=== PATIENT | female | born 1965 | race Hispanic/Latino ===

== ENCOUNTER 2021-02-28 07:33 | Day surgery (SDC) | payer BC ==
[2021-02-26 09:45] VITALS: BP 155/76
[2021-02-26 10:01] LABS: BASOPHILS % (AUTO) 0.6 % (0.0-5.0); EOSINOPHILS % (AUTO) 2.6 % (0.0-8.0); HEMATOCRIT 45.3 % (36-48); LYMPHOCYTES % (AUTO) 31.1 % (21.0-51.0); MEAN CORPUSCULAR HEMOGLOBIN 29.7 pg (27.0-33.0); MEAN CORPUSCULAR HGB CONC 33.6 g/dL (32.0-36.0); MEAN CORPUSCULAR VOLUME 88.5 fL (79-99); MONOCYTES % (AUTO) 5.8 % (3.0-13.0); NEUTROPHILS % (AUTO) 59.6 % (40.0-77.0); PLATELET COUNT (AUTO) 310 K/uL (130-400); RED BLOOD CELL COUNT(AUTO) 5.12 MIL/uL (4.00-5.50); RED CELL DISTRIBUTION WIDTH 11.9 % (11.0-15.5); WHITE BLOOD COUNT (AUTO) 7.1 K/uL (4.8-10.8)
[2021-02-26 10:12] LABS: CREATININE 0.7 mg/dL (0.5-1.5); POTASSIUM 4.6 mmol/L (3.5-5.1)
[~2021-02-28] VITALS: Ht 160 cm; Wt 73.8 kg
[2021-02-28] VITALS (19 sets, daily range): BP systolic 106–149; BP diastolic 49–91
[~2021-02-28 07:33] MED LIST: LISI10TA24 PO; SIMV10TA97 PO
[2021-02-28] MEDS ORDERED: LACTATED RINGERS 1000ML 1,000 ML IV ONE (09:22)
[2021-02-28] MEDS: CEFAZOLIN SODIUM 1 GM VIAL ONE ×2 (10:31→14:30)
[2021-02-28] MEDS ORDERED: DEXAMETHASONE SOD PHOSPHATE 10MG/ML 1ML VIAL ONE (13:53)
[2021-02-28] MEDS ORDERED: ONDANSETRON 4MG INJ ONE ×2 (13:53→17:29)
[2021-02-28] MEDS ORDERED: LIDOCAINE PF 100MG/5ML (2%) SYRINGE 5ML ONE (13:53)
[2021-02-28] MEDS ORDERED: SUCCINYLCHOLINE CHLORIDE 20 MG/ML 10 ML VIAL ONE (13:53)
[2021-02-28] MEDS ORDERED: GLYCOPYRROLATE 1 MG/5 ML SYRINGE ONE (13:54)
[2021-02-28] MEDS ORDERED: PROPOFOL 10 MG/ML 20ML VIAL IV ONE (13:54)
[2021-02-28] MEDS ORDERED: ROCURONIUM 10MG/1ML SYR 10 MG/ML ML ONE (13:54)
[2021-02-28] MEDS ORDERED: NEOSTIGMINE 5MG/5ML SYR IV ONE (13:54)
[2021-02-28] MEDS ORDERED: MIDAZOLAM HCL 1 MG/ML 2ML VIAL ONE (13:54)
[2021-02-28] MEDS ORDERED: FENTANYL CITRATE PF 50 MCG/1 ML 5ML AMP IV ONE (13:56)
[2021-02-28] MEDS ORDERED: EPHEDRINE SULFATE 50 MG/ML AMPULE ONE (14:08)
[2021-02-28] MEDS ORDERED: EPINEPHRINE 1 MG/ML 30ML VIAL IJ ONE (14:27)
[2021-02-28] MEDS ORDERED: CEFAZOLIN SODIUM 2 GM VIAL IV ONE (14:30)
[2021-02-28] MEDS ORDERED: PHENYLEPHRINE HCL 10 MG/ML 1ML VIAL IV ONE (14:34)
[2021-02-28] MEDS ORDERED: CEFAZOLIN SODIUM 1 GM VIAL ONE (15:45)
[2021-02-28] MEDS ORDERED: MELO-108 PO (16:40)
[2021-02-28] MEDS ORDERED: HYDR-4060 PO (16:40)
[2021-02-28] MEDS ORDERED: CEPH500B PO (16:40)
== END 2021-02-28 18:45 | disposition home or self-care (01) ==
LOC: DAH 07:33
PROVIDERS: ATTEND Orthopaedic Surgery
DX: M75.122 Complete rotator cuff tear or rupture of left shoulder, not specified as traumatic (principal); Z20.822 Contact with and (suspected) exposure to COVID-19; M75.42 Impingement syndrome of left shoulder; I10 Essential (primary) hypertension; G89.29 Other chronic pain; K21.9 Gastro-esophageal reflux disease without esophagitis; M19.90 Unspecified osteoarthritis, unspecified site; Z82.49 Family history of ischemic heart disease and other diseases of the circulatory system; Z90.710 Acquired absence of both cervix and uterus
CPT/HCPCS: 23412; 36415; 64415; 76942; 80048; 85025; 87635; A4215; A4221; A4222; A4223; A4565; A4600; A4649 ×3; A4663; A4930; A5120; A6204; C1713 ×5; C9803; J0171; J0330; J0690 ×3; J1100; J2001; J2370; J2405 ×2; J2704; J2710; J3010; J3490 ×2; J7120 ×2; J2250

== ENCOUNTER 2021-03-03 16:29 | Emergency (ER) | payer BC ==
[~2021-03-03] VITALS: Ht 157.5 cm; Wt 73.5 kg
[~2021-03-03 16:29] MED LIST changes: +CEPH500B PO; +HYDR-4060 PO; +MELO-108 PO
[2021-03-03 17:06] LABS: BASOPHILS % (AUTO) 0.1 % (0.0-5.0); EOSINOPHILS % (AUTO) 0.3 % (0.0-8.0); HEMATOCRIT 42.4 % (36-48); LYMPHOCYTES % (AUTO) 7.9 % (21.0-51.0); MEAN CORPUSCULAR HEMOGLOBIN 29.9 pg (27.0-33.0); MEAN CORPUSCULAR VOLUME 88.1 fL (79-99); MONOCYTES % (AUTO) 6.2 % (3.0-13.0); NEUTROPHILS % (AUTO) 85.1 % (40.0-77.0); PLATELET COUNT (AUTO) 303 K/uL (130-400); RED BLOOD CELL COUNT(AUTO) 4.81 MIL/uL (4.00-5.50); WHITE BLOOD COUNT (AUTO) 15.2 K/uL (4.8-10.8)
[2021-03-03 17:11] LABS: APPEARANCE,URINE Cloudy (CLEAR); BILIRUBIN,URINE Negative (NEGATIVE); COLOR,URINE Yellow (YELLOW); GLUCOSE, URINE (UA) Negative (NEGATIVE); KETONES,URINE Negative (NEGATIVE); LEUKOCYTE ESTERASE ,URINE Negative (NEGATIVE); NITRATE,URINE Negative (NEGATIVE); OCCULT BLOOD,URINE Large (NEGATIVE); PROTEIN,URINE Negative (NEGATIVE); UROBILINOGEN,URINE 0.2 mg/dL (0.2-1.0)
[2021-03-03 17:16] LABS: POTASSIUM 3.2 mmol/L (3.5-5.1)
[2021-03-03 17:20] LABS: BACTERIA,URINE Rare /HPF (None Seen); SQUAMOUS EPITHELIAL CELL,UR Few /HPF (0-2); WBC,URINE 0-1 /HPF (0-1)
[2021-03-03 17:25] LABS: ALBUMIN 3.5 g/dL (3.5-5.0); BILIRUBIN,TOTAL 0.7 mg/dL (0.2-1.0); TOTAL PROTEIN, SERUM 7.6 g/dL (6.0-8.3)
[2021-03-03] MEDS ORDERED: POTASSIUM CHLORIDE 20 MEQ/100 ML BAG IV ONE (18:00)
[2021-03-03] MEDS ORDERED: BISACODYL 10 MG SUPP.RECT RC ONE (18:00)
[2021-03-03] MEDS ORDERED: ONDANSETRON 4MG INJ IVP ONE (18:00)
[2021-03-03] MEDS ORDERED: 0.9%NACL 1000ML 1,000 ML IV ONE ×2 (18:00→20:00)
[2021-03-03] MEDS ORDERED: LIDOCAINE HCL-MPF 1% 2ML VIAL ONE (18:19)
[2021-03-03] MEDS ORDERED: METOCLOPRAMIDE 10 MG/2 ML VIAL IVP ONE (20:00)
[2021-03-03] MEDS ORDERED: LACTULOSE 20 GM/30 ML UDCUP PO ONE (20:00)
[2021-03-03] MEDS ORDERED: METO-296 PO (22:32)
[2021-03-03] MEDS ORDERED: ONDA4TAB10 PO (22:32)
[2021-03-03 23:30] VITALS: BP 132/74
== END 2021-03-03 23:47 | disposition home or self-care (01) ==
LOC: EDH 16:29
DX: E87.6 Hypokalemia (principal); E86.9 Volume depletion, unspecified; K59.00 Constipation, unspecified; R11.10 Vomiting, unspecified; I10 Essential (primary) hypertension; Z79.1 Long term (current) use of non-steroidal anti-inflammatories (NSAID); Z79.899 Other long term (current) drug therapy; Z98.890 Other specified postprocedural states
CPT/HCPCS: 36415; 74176; 80053; 81001; 82550; 83690; 84484; 85025; 93005; 96361; 96365; 96375; 99284; J2405; J2765; J3480; J3490; J7030

== ENCOUNTER 2021-03-06 07:26 | Emergency (ER) | payer BC ==
[~2021-03-06] VITALS: Ht 157.5 cm; Wt 73.5 kg
[~2021-03-06 07:26] MED LIST changes: +METO-296 PO; +ONDA4TAB10 PO
[2021-03-06 07:58] LABS: BASOPHILS % (AUTO) 0.4 % (0.0-5.0); EOSINOPHILS % (AUTO) 4.6 % (0.0-8.0); HEMATOCRIT 40.4 % (36-48); LYMPHOCYTES % (AUTO) 24.2 % (21.0-51.0); MEAN CORPUSCULAR HEMOGLOBIN 29.8 pg (27.0-33.0); MEAN CORPUSCULAR HGB CONC 32.7 g/dL (32.0-36.0); MEAN CORPUSCULAR VOLUME 91.2 fL (79-99); MONOCYTES % (AUTO) 6.2 % (3.0-13.0); PLATELET COUNT (AUTO) 328 K/uL (130-400); RED BLOOD CELL COUNT(AUTO) 4.43 MIL/uL (4.00-5.50); RED CELL DISTRIBUTION WIDTH 11.9 % (11.0-15.5); WHITE BLOOD COUNT (AUTO) 8.2 K/uL (4.8-10.8)
[2021-03-06 08:09] LABS: CREATININE 0.6 mg/dL (0.5-1.5); POTASSIUM 4.5 mmol/L (3.5-5.1)
[2021-03-06 08:14] LABS: ALBUMIN 3.2 g/dL (3.5-5.0); BILIRUBIN,TOTAL 0.3 mg/dL (0.2-1.0)
[2021-03-06 08:31] LABS: APPEARANCE,URINE Clear (CLEAR); BILIRUBIN,URINE Negative (NEGATIVE); COLOR,URINE Yellow (YELLOW); GLUCOSE, URINE (UA) Negative (NEGATIVE); KETONES,URINE Negative (NEGATIVE); LEUKOCYTE ESTERASE ,URINE Negative (NEGATIVE); NITRATE,URINE Negative (NEGATIVE); OCCULT BLOOD,URINE Small (NEGATIVE); PROTEIN,URINE Negative (NEGATIVE); UROBILINOGEN,URINE 0.2 mg/dL (0.2-1.0)
[2021-03-06 08:51] LABS: MUCUS,URINE Few LPF (None Seen); SQUAMOUS EPITHELIAL CELL,UR Few /HPF (0-2)
[2021-03-06 08:52] LABS: BACTERIA,URINE Rare /HPF (None Seen); RBC,URINE 0-1 /HPF (0-1); WBC,URINE 0-1 /HPF (0-1)
[2021-03-06 09:53] VITALS: BP 149/75
== END 2021-03-06 10:00 | disposition home or self-care (01) ==
LOC: EDH 07:26
DX: R33.9 Retention of urine, unspecified (principal); R14.0 Abdominal distension (gaseous); E78.00 Pure hypercholesterolemia, unspecified; I10 Essential (primary) hypertension; Z79.1 Long term (current) use of non-steroidal anti-inflammatories (NSAID); Z79.899 Other long term (current) drug therapy
CPT/HCPCS: 36415; 51702; 80053; 81001; 85025